=== PATIENT | female | born 1960 | race Caucasian/White ===

== ENCOUNTER → 2016-12-17 | Outpatient (CLI) | payer BC | LOC: MAMO 14:18 | DX: Z12.31 Encounter for screening mammogram for malignant neoplasm of breast (principal) | CPT/HCPCS: G0202 ==

== ENCOUNTER → 2021-05-26 | Day surgery (SDC) | payer BC ==
[~2021-05-26] MED LIST: MULTI-VITAMIN1 EACH PO; RECLAST IV; VITAMIN B-121000 MCG PO; VITAMIN D325 MC6 PO; ZYRTEC10 MG PO
== END | disposition home or self-care (01) ==
LOC: OR 06:02
DX: Z12.11 Encounter for screening for malignant neoplasm of colon (principal); F41.9 Anxiety disorder, unspecified; M81.0 Age-related osteoporosis without current pathological fracture; E55.9 Vitamin D deficiency, unspecified; N95.1 Menopausal and female climacteric states; E87.5 Hyperkalemia; J30.9 Allergic rhinitis, unspecified; Z79.899 Other long term (current) drug therapy; Z20.822 Contact with and (suspected) exposure to COVID-19
CPT/HCPCS: J2001; J2704; J7030

== ENCOUNTER → 2021-08-21 | Outpatient (CLI) | payer BC ==
[~2021-08-21] VITALS: Ht 165.1 cm; Wt 61.2 kg
== END ==
LOC: OPSV 08-01 12:00
DX: M81.0 Age-related osteoporosis without current pathological fracture (principal)
CPT/HCPCS: 96365; J3489